=== PATIENT | female | born 1960 | race Caucasian/White ===

== ENCOUNTER 2017-01-06 13:33 | Outpatient (CLI) | END 2017-01-06 13:34 | disposition home or self-care (01) | LOC: LABLEX 13:33 | PROVIDERS: ATTEND Family Medicine | DX: Z12.4 Encounter for screening for malignant neoplasm of cervix (principal) | CPT/HCPCS: 87624; 88142; G0123 ==

== ENCOUNTER 2018-11-11 10:30 | Emergency (ER) | payer MEDICARE, OTHER ==
[2018-11-11] MEDS ORDERED: Morphine 4 MG/ML VIAL ONE ×2 (10:54→12:11)
[2018-11-11 11:51] LABS: #Lymphocytes 1.3 thou/uL (1.20-3.40); #Monocytes 0.5 thou/uL (0.11-0.59); #Neutrophils 4.9 thou/uL (1.40-6.50); %Basophils 0.3 % (0.0-1.0); %Lymphocytes 18.7 % (21.0-51.0); %Monocytes 7.9 % (0.0-10.0); Hemoglobin 15.8 g/dL (12.0-16.0); Lymphocytes 17 % (21-51); MDiff Complete? YES; Mean Corpuscular HGB CONC 36.7 g/dL (32.0-36.0); Mean Corpuscular Hemoglobin 33.4 pg (27.0-31.0); Mean Corpuscular Volume 91.1 fL (78.0-98.0); Mean Platelet Volume 7.3 fL (7.4-10.4); Monocytes 6 % (0-10); Neutrophil 77 % (42-75); Platelet Count 153 thou/uL (130-400); RBC Distribution Width 10.6 % (11.5-14.5); Red Blood Cell (RBC) Count 4.73 mill/uL (4.20-5.40); White Blood Cell (WBC) Count 6.8 thou/uL (4.8-10.8)
[2018-11-11 11:52] LABS: Anion Gap 17 mmol/L (10-20); BUN (Urea Nitrogen) 5 mg/dL (9.8-20.1); Calc. Creatinine Clearance 0 mL/min (70-130); Calcium 9.4 mg/dL (7.8-10.44); Carbon Dioxide 22 mmol/L (22-29); Chloride 93 mmol/L (98-107); Estimated GFR-MDRD Greater than 90; Glucose 109 mg/dL (70-105); Potassium 4.5 mmol/L (3.5-5.1); Sodium 127 mmol/L (136-145)
--- NOTE | 2018-11-11 16:14 | RAD ---
PELVIS 11/11/18 A single view shows a fracture through the right femoral neck. There is slight displacement. There is no dislocation of the femoral head. The left hip and remainder of the bony pelvis appears intact. Th e SI joints are symmetrical and the symphysis shows no widening of offset. IMPRESSION: Fracture of the right femoral neck. POS: HOME
--- NOTE | 2018-11-11 16:17 | RAD ---
RIGHT HIP TWO VIEWS: 11/11/18 There is a fracture through the right femoral neck with slight displacement of the bony fragments. Th ere is no dislocation of the femoral head and the hip joint space is normal in width. The adjacent pu bic ring appears intact. IMPRESSION: Mildly displaced fracture of the femoral neck. POS: HOME
--- NOTE | 2018-11-11 16:21 | RAD ---
RIGHT FEMUR 11/11/18 AP and lateral views to shows the remainder of the femur, showed the femoral shaft and distal femur a ll appear intact. No fractures were seen there. IMPRESSION: Distal portions of the femur are intact. POS: HOME
== END 2018-11-11 12:25 | disposition short-term general hospital (02) ==
LOC: BURERS 10:30
DX: S72.001A Fracture of unspecified part of neck of right femur, initial encounter for closed fracture (principal); I10 Essential (primary) hypertension; F41.9 Anxiety disorder, unspecified; Z79.899 Other long term (current) drug therapy; W17.89XA Other fall from one level to another, initial encounter
CPT/HCPCS: 72170; 80048; 82550; 85025; 96374; 96376; J2270

== ENCOUNTER 2019-07-18 11:39 | Emergency (ER) | payer MEDICARE ==
[2019-07-18] MEDS ORDERED: Ibuprofen 200 MG TAB ONE (12:23)
--- NOTE | 2019-07-18 19:46 | RAD ---
LEFT ANKLE THREE VIEWS: 07/18/19 Soft tissue swelling is seen around the ankle. The oblique view suggests a vertical fracture through the body of the calcaneus and lateral view shows some tiny cortical fragments on the plantar aspect o f the calcaneal body. The ankle mortise itself appears intact. IMPRESSION: Calcaneal fracture. POS: HOME
--- NOTE | 2019-07-18 19:48 | RAD ---
LEFT FOOT THREE VIEWS: 07/18/19 HISTORY: A fracture is seen through the body of the calcaneus with minimal displacement. The metatarsals all a ppeared intact. There was an equivocal line through the proximal phalanx of the second toe on one vie w, but the area looked normal on another. Correlate with clinical exam. IMPRESSION: 1. Calcaneal fracture. 2. Equivocal line in the proximal phalanx of the second toe. The finding should be correlated w ith the clinical exam. POS: HOME
== END 2019-07-18 14:01 | disposition home or self-care (01) ==
LOC: BURERS 11:39
DX: S92.002A Unspecified fracture of left calcaneus, initial encounter for closed fracture (principal); S93.402A Sprain of unspecified ligament of left ankle, initial encounter; I10 Essential (primary) hypertension; M19.90 Unspecified osteoarthritis, unspecified site; F41.9 Anxiety disorder, unspecified; Z79.899 Other long term (current) drug therapy; X50.1XXA Overexertion from prolonged static or awkward postures, initial encounter